=== PATIENT | male | born 1970 | race Caucasian/White ===

== ENCOUNTER 2020-05-09 19:09 | Emergency (ER) | payer BC, SELFPAY ==
--- NOTE | ~2020-05-09 | CT_ITS ---
EXAMINATION: CT brain wo con DATE: 05/09/2020 20:33 INDICATION: Confusion. Lack of coordination. TECHNIQUE: Computed tomography (CT) of the head was performed without intravenous contrast. The dose- length product was 605.33 mGy-cm. The mA was adjusted according to patient size. Iterative reconstruc tion technique was employed. COMPARISON: None FINDINGS: There is a geographic hypodensity of the left frontal lobe and basal ganglia, suspicious fo r acute infarction. No significant mass effect. No ventriculomegaly or midline shift. There is intrac ranial atherosclerosis. Basilar cisterns are patent. Paranasal sinuses and mastoids are pneumatized. No depressed skull fractures. IMPRESSION: 1. Geographic hypodensity left frontal lobe and basal ganglia, suspicious for acute infarction. No si gnificant mass effect or associated hemorrhage. Reviewed, dictated and finalized at location A. IMPRESSION: 1. Geographic hypodensity left frontal lobe and basal ganglia, suspicious for a cute infarction. No significant mass effect or associated hemorrhage.
[2020-05-09 19:15] VITALS: BP 152/85; PULSE 87; RESP 18; TEMP 36.4; O2SAT 97
--- NOTE | 2020-05-09 19:31 | ECG_ITS ---
Measurements Intervals [place] Rate: 84 P: 52 MD: 154 QRS: 26 QRSD: 121 T: 130 QT: 383 QTc: 455 Interpretive Statements SINUS RHYTHM LEFT VENTRICULAR HYPERTROPHY AND ST-T CHANGE BORDERLINE ST-T WAVE ABNORMALITY- ANTEROLAT/HIGH LAT LEADS BASELINE ARTIFACT- I, II, III, AVR, AVL, AVF, V1-V6 BORDERLINE ECG Electronically Signed On 05-10-2020 8:17:50 CDT by Franc Lazcano D.O.
--- NOTE | 2020-05-09 19:38 | ED.AMS ---
HPI - Altered Mental Status General Chief Complaint: Dental/Oral Stated Complaint: tooth pain Time Seen by Provider: 05/09/20 19:38 Source: patient and family Mode of arrival: ambulatory Limitations: no limitations History of Present Illness HPI narrative: 50-year-old man comes to the emergency department this evening complaining of toothache on the left side of his upper jaw. His mother accompanies him stating that this evening he has been confused and not acting well. He did not eat dinner as per usual. He states he has a headache and feels dizzy. Has had no nausea, vomiting, diarrhea, chest pain, shortness of breath, cough or cold symptoms, abdominal pain, dysuria or hematuria. He has not had no recent medication changes and denies any recent drugs or alcohol. MD complaint: altered mental status Onset (ago): hour(s) Timing confirmed by: family member Severity: moderate Consistency of symptoms: constant Context: diabetes Associated symptoms: headaches Related Data Home Medications Medication Instructions Recorded Confirmed atorvastatin 40 mg PO DAILY 05/09/20 05/09/20 glimepiride 4 mg PO DAILY 05/09/20 05/09/20 lisinopril 20 mg PO DAILY 05/09/20 05/09/20 metformin 2,000 mg PO DAILY 05/09/20 05/09/20 metoprolol succinate 12.5 mg PO BID 05/09/20 05/09/20 Allergies Allergy/AdvReac Type Severity Reaction Status Date / Time No Known Allergies Allergy Unknown Verified 03/06/08 18:31 NKFA Allergy Unknown Uncoded 01/01/03 13:56 Review of Systems Constitutional: Constitutional: Denies chills and Denies fever(s) Eyes: Eyes: Denies change in vision and Denies photophobia ENT: Denies dysphagia, Denies nasal congestion and Denies sore throat Cardiovascular: Cardiovascular: Denies chest pain and Denies radiating jaw, neck or arm pain Respiratory: Respiratory: Denies cough and Denies dyspnea Gastrointestinal: Gastrointestinal: Denies abdominal pain, Denies nausea and Denies vomiting Genitourinary: Genitourinary: Denies hematuria and Denies dysuria Musculoskeletal: Musculoskeletal: Denies back pain, Denies arthralgias and Denies joint swelling Integumentary/Breasts: Skin/Breast: Denies pruritus, Denies erythema and Denies rash Neurologic: Reports as per HPI, Reports confusion, Denies vertigo, Reports dizziness, Denies syncope, Denies focal weakness and Denies numbness Endocrine: Endocrine: Denies polydipsia and Denies polyuria Hematologic/Lymphatic: Hematologic/Lymphatic: Denies easy bleeding and Denies easy bruising Allergic/Immunologic: Allergic/Immunologic: Denies lip swelling and Denies tongue swelling [facility] Past Medical History Medical History (Updated 05/09/20 @ 21:27 by Franklin Batista MD) Coronary artery disease Hyperlipidemia Hypertension Surgical History Surgical History (Updated 05/09/20 @ 19:42 by Franklin Batista MD) History of left heart catheterization Social History Social History Smoking status: Current every day smoker Tobacco type: cigarettes Alcohol intake: former Alcohol use details: not since March Substance use: former Last use: not since March Living arrangements: with family Additional occupation/education comments: stress lately because his workplace may be shutting down Exam Const: General: healthy appearing, no acute distress and alert Other: Oriented to year. Mistakenly identifies birthday, month, and cannot identify the present, But correctly states next Tuesday is election day. HENMT: Ears: external ears normal, TM's normal bilaterally and EAC's normal General nose exam: Normal nares present Face and sinus: normal facial exam Mouth: Yes moist mucous membranes Throat: posterior oropharynx normal Other: Diffuse dental decay, left upper 2nd molar decayed to the gingiva. Minimal gum swelling. Eyes: Conjunctivae: conjunctivae normal Pupils: Equal, round and reacti
[2020-05-09 19:51] LABS: Glucose Point of Care 345 (65-105)
[2020-05-09] MEDS: SODIUM CHLORIDE 0.9% IV 1,000 ML 999 ML IV CONT (19:51)
[2020-05-09 19:59] LABS: Base Excess ABG 1.7 mmol/L (0-2); Basophils Absolute Auto 0.03 K/mm3 (0.00-0.10); Basophils Percent Auto 0.3 % (0.0-1.0); Carboxyhemoglobin 7.2 % (0-1.5); Eosinophils Absolute Auto 0.15 K/mm3 (0.02-0.50); Eosinophils Percent Auto 1.5 % (1.0-6.0); HCO3 ABG 25.5 mmol/L (23-29); Hematocrit 45.7 % (40.0-54.0); Hemoglobin 15.7 g/dL (14.0-18.0); Immature Granulocyte Absolute 0.04 K/mm3 (0.00-0.00); Immature Granulocyte Percent A 0.4 % (0.0-0.0); Lymphocytes Absolute Auto 2.67 K/mm3 (1.10-4.50); Lymphocytes Percent Auto 27.1 % (18.0-42.0); Mean Corpuscular HGB Conc 34.4 g/dL (32.0-36.0); Mean Corpuscular Hemoglobin 29.6 pg (27.0-31.0); Mean Corpuscular Volume 86.2 fL (78.0-102.0); Methemoglobin ABG 0.3 % (0-1.5); Monocytes Absolute Auto 0.63 K/mm3 (0.10-0.90); Monocytes Percent Auto 6.4 % (2.0-11.0); Neutrophils Absolute Auto 6.4 K/mm3 (1.7-7.2); Neutrophils Percent Auto 64.3 % (50.0-70.0); Oxygen Content ABG 19.5 %vol (16.0-22.0); Oxygen Saturation ABG 95.6 % (95-97); Oxyhemoglobin 88.4 % (94-100); PCO2 ABG 37.3 mmHg (35-45); PO2 ABG 72.5 mmHg (80-90); Platelet Count Result 248 K/mm3 (150-420); Red Cell Distribution Width 12.1 % (11.6-14.4); Reduced Hemoglobin 4.1 % (0-1.5); Total Hemoglobin 15.7 g/dL; White Blood Count 9.9 K/mm3 (4.8-10.8); pH ABG 7.45 (7.35-7.45)
[2020-05-09 20:00] LABS: Device ROOM AIR; Modified Allen's Test Pass; Site Drawn RIGHT BRACHIAL
[2020-05-09 20:16] LABS: Lactic Acid Reflex 1.2 mmol/L (0.4-2.0); Partial Thromboplastin Time 28.1 SEC (22.3-31.6); Prothrombin Time 10.3 Seconds (9.64-11.0)
[2020-05-09 20:23] LABS: Alanine Aminotransferase 26 U/L (16-63); Albumin Level 4.1 g/dL (3.4-5.0); Alkaline Phosphatase 93 U/L (46-116); Ammonia 15 umol/L (11-32); Anion Gap 11 mmol/L (8-16); Aspartate Amino Transferase < 10 U/L (15-37); Bilirubin,Total 0.4 mg/dL (0.00-1.00); Blood Urea Nitrogen 8 mg/dL (7-18); Carbon Dioxide 26 mmol/L (21-32); Chloride 95 mmol/L (98-108); Creatine Kinase 55 U/L (39-308); Estimated CRCL calculation 97 ml/min; Estimated Glomerular Filt Rate > 60; Glucose 308 mg/dL (70-99); Osmolality Calculated 284 mOsm/kg (285-295); Potassium 4.3 mmol/L (3.5-5.1); Salicylate 5.3 mg/dL (2.8-20.0); Sodium 132 mmol/L (136-145); Thyroid Stimulating Hormone 0.86 uIU/mL (0.36-3.74); Total Protein 7.3 g/dL (6.4-8.2); Troponin I 0.02 ng/mL (0.00-0.056)
[2020-05-09 20:25] LABS: Acetaminophen 0 ug/mL (10-30); Ethanol < 3 mg/dL (0-6)
[2020-05-09 20:32] LABS: Add Urine Microscopic? YES; Appearance Urine Clear (Clear); Bilirubin Urine Negative (Negative); Blood Urine Negative (Negative); Color Urine Yellow (Yellow); Glucose Urine UA 3+ (Negative); Ketones Urine Negative (Negative); Leukocyte Esterase Ur Negative LEU/UL (Negative); Nitrate Urine Negative (Negative); Protein Urine Negative (Negative); Urobilinogen Urine 0.2 mg/dL (0.2-1.0); pH Urine 6.5 (5.0-8.0)
[2020-05-09 20:38] LABS: Bacteria Urine Trace /hpf; RBC Urine 0-2 /hpf (0-2); Squamous Epithelial Cell Urine Rare /hpf (Few); WBC Urine 0-3 /hpf (0-3)
[2020-05-09 20:39] LABS: Amphetamine Screen Urine Negative (Negative); Barbiturate Screen Urine Negative (Negative); Benzodiazepines Screen Urine Negative (Negative); Cannabinoid Screen Urine Negative (Negative); Cocaine Screen Urine Negative (Negative); Methadone Screen Urine Negative (Negative); Opiate Screen Urine Negative (Negative); Phencyclidine Screen Urine Negative (Negative)
[2020-05-09 20:45] VITALS: BP 136/67; PULSE 84; RESP 20; TEMP 36.4; O2SAT 98
--- NOTE | 2020-05-09 20:51 | PC.NURSE ---
call to [facility] for neuro consult, out of window for stat stroke, unknown last normal time as pt lives alone.
--- NOTE | 2020-05-09 20:54 | PC.NURSE ---
awaiting for call back from [facility] [address] govea.
--- NOTE | 2020-05-09 21:06 | PC.NURSE ---
pt unable to complete thoughts, pt speech garbled at times. pt states i know when this stroke happened , asked when, pt states 30 saturdays,no 3 . ask how he knows, states i couldnt dry the dishes . mother states he has been going to work except for today as far as she knows.
--- NOTE | 2020-05-09 21:09 | PC.NURSE ---
spoke with vicente at [facility].
--- NOTE | 2020-05-09 21:12 | PCDIET ---
call to [facility] per pt request.
[2020-05-09 21:16] VITALS: BP 160/93; PULSE 72; RESP 20; O2SAT 96
--- NOTE | 2020-05-09 21:21 | PC.NURSE ---
erp spoke with dr limon from [facility], pt to transfer. pt unable to write name clearly as normal. slight right are drift noted. no facial droop noted. awaiting bed placement at this time.
[2020-05-09] MEDS: ASPIRIN 81 MG CHEWABLE TABLET 324 MG PO (21:37)
--- NOTE | 2020-05-09 21:53 | PC.NURSE ---
call to october at [facility], continue to await bed placement, family in with pt.
[2020-05-09 22:22] VITALS: BP 162/95; PULSE 76; RESP 20; TEMP 36.3; O2SAT 97
--- NOTE | 2020-05-09 22:28 | PC.NURSE ---
[facility] called for transport. awaiting arrival
--- NOTE | 2020-05-09 22:43 | PC.NURSE ---
[facility] here, report given, pt loaded to cot. departed facility with all belongings. pt declined putting on a gown.
--- NOTE | 2020-05-09 22:56 | PC.NURSE ---
pt assisted to cot, gait slow leaning to right. right side of face slightly puffy.
== END 2020-05-09 22:57 | disposition short-term general hospital (02) ==
PROVIDERS: Emergency Provider Emergency Medicine; PCP Internal Medicine
DX: I63.9 Cerebral infarction, unspecified (principal); K08.89 Other specified disorders of teeth and supporting structures; Z79.899 Other long term (current) drug therapy; I25.10 Atherosclerotic heart disease of native coronary artery without angina pectoris; E78.5 Hyperlipidemia, unspecified; I10 Essential (primary) hypertension; F17.200 Nicotine dependence, unspecified, uncomplicated
CPT/HCPCS: 36415; 36600; 70450; 71046; 80053; 80307; 81001; 82140; 82375; 82550; 82805; 82948; 83050; 83605; 84443; 84484; 85025; 85610; 85730; 87040; 93005; 96360; 99285; A9270; J7030

== ENCOUNTER 2021-03-17 11:15 | Outpatient (CLI) | payer BC, SELFPAY ==
--- NOTE | ~2021-03-17 | XR_ITS ---
EXAMINATION: XR chest 2V DATE: 03/17/2021 11:39 INDICATION: Cough and body aches TECHNIQUE: PA and lateral views of the chest are obtained. COMPARISON: 05/09/2020 FINDINGS: The lungs are free of acute opacities. There is no pleural effusion or pneumothorax. The ca rdiomediastinal silhouette is normal. There is mild thoracic spondylosis. IMPRESSION: 1. No acute cardiopulmonary abnormality. Reviewed, dictated and finalized at location B.
[2021-03-17 11:50] LABS: Basophils Absolute Auto 0.06 K/mm3 (0.00-0.10); Basophils Percent Auto 0.8 % (0.0-1.0); Eosinophils Absolute Auto 0.08 K/mm3 (0.02-0.50); Hematocrit 47.5 % (40.0-54.0); Hemoglobin 16.4 g/dL (14.0-18.0); Immature Granulocyte Absolute 0.03 K/mm3 (0.00-0.00); Immature Granulocyte Percent A 0.4 % (0.0-0.0); Lymphocytes Absolute Auto 2.26 K/mm3 (1.10-4.50); Lymphocytes Percent Auto 28.6 % (18.0-42.0); Mean Corpuscular HGB Conc 34.5 g/dL (32.0-36.0); Mean Corpuscular Hemoglobin 29.1 pg (27.0-31.0); Mean Corpuscular Volume 84.2 fL (78.0-102.0); Mean Platelet Volume 10.6 fl (8.7-11.0); Monocytes Absolute Auto 0.47 K/mm3 (0.10-0.90); Neutrophils Percent Auto 63.2 % (50.0-70.0); Platelet Count Result 313 K/mm3 (150-420); Red Blood Count 5.64 M/mm3 (4.70-6.10); Red Cell Distribution Width 12.5 % (11.6-14.4); White Blood Count 7.9 K/mm3 (4.8-10.8)
[2021-03-17 12:10] LABS: Alanine Aminotransferase 41 U/L (16-63); Albumin Level 4.2 g/dL (3.4-5.0); Alkaline Phosphatase 96 U/L (46-116); Anion Gap 9 mmol/L (8-16); Aspartate Amino Transferase 20 U/L (15-37); Bilirubin,Total 0.4 mg/dL (0.00-1.00); Blood Urea Nitrogen 4 mg/dL (7-18); Calcium 9.3 mg/dL (8.5-10.1); Carbon Dioxide 26 mmol/L (21-32); Chloride 99 mmol/L (98-108); Estimated Glomerular Filt Rate > 60; Glucose 358 mg/dL (70-99); Osmolality Calculated 288 mOsm/kg (285-295); Potassium 4.5 mmol/L (3.5-5.1); Sodium 134 mmol/L (136-145); Total Protein 7.8 g/dL (6.4-8.2)
[2021-03-17 12:17] LABS: Influenza Control Valid (Valid); SARS-CoV-2 Ag Negative (Negative)
== END 2021-03-17 11:16 | disposition home or self-care (01) ==
LOC: CHSLAB 11:17
PROVIDERS: PCP Internal Medicine; Visit Provider Internal Medicine
DX: R05 Cough (principal); R52 Pain, unspecified; Z20.822 Contact with and (suspected) exposure to COVID-19
CPT/HCPCS: 71046; 80053; 85025; 87081; 87426; 87804; 87880; C9803

== ENCOUNTER 2021-08-14 11:44 | Emergency (ER) | payer BC, SELFPAY ==
[2021-08-14 11:50] VITALS: BP 131/56; PULSE 111; RESP 20; TEMP 36.2; O2SAT 97
--- NOTE | 2021-08-14 12:26 | ED.DENTAL ---
HPI - Dental/Oral General Chief complaint: Dental/Oral Stated complaint: Infected tooth Time Seen by Provider: 08/14/21 11:46 Source: patient and RN notes reviewed Mode of arrival: ambulatory Limitations: no limitations History of Present Illness Complaint: tooth pain Location: Tooth # (20) Onset (ago): day(s) (2) Duration: constant Severity: moderate Severity scale (1-10): 6 Relieving factors: nothing Exacerbating factors: chewing Context: history of dental caries Associated symptoms: ear pain Treatment prior to arrival: none Related Data Allergies Allergy/AdvReac Type Severity Reaction Status Date / Time No Known Allergies Allergy Unknown Verified 03/06/08 18:31 NKFA Allergy Unknown Uncoded 01/01/03 13:56 Review of Systems Review of Systems: All systems reviewed & are unremarkable except as noted in HPI and below ENT: Comments: left earache + left cheek swelling PMFSH Past Medical History Medical History Coronary artery disease Hyperlipidemia Hypertension Surgical History Surgical History History of left heart catheterization Social History Social History Smoking status: Current every day smoker Tobacco type: cigarettes Alcohol intake: former Alcohol use details: not since March Substance use: former Last use: not since March Additional occupation/education comments: stress lately because his workplace may be shutting down Exam Const: General: healthy appearing, no acute distress and alert Orientation/consciousness: patient oriented x3 Limitations: no limitations HENMT: Ears: external ears normal and TM's normal bilaterally General nose exam: Normal external nose present and Normal nares present Face and sinus: normal facial exam and sinuses nontender Mouth: Yes lip normal and Yes moist mucous membranes Teeth and gingiva: dentition normal (multiple carious teeth. no acute gum redness, swelling or pus) Eyes: Conjunctivae: conjunctivae normal Pupils: Equal, round and reactive pupils present EOM: EOMs intact bilaterally Neck: Neck: normal visual inspection and no lymphadenopathy Chest: Chest palpation & inspection: normal inspection of the chest Resp: Effort & Inspection: normal respiratory effort Auscultation: clear to auscultation bilaterally Cardio: Rate: regular rate Rhythm: regular rhythm GI: GI Palp: Yes Soft to palpation and No Tenderness to palpation present (GI) Auscultation: normal bowel sounds : General: Yes bladder normal to palpation and Yes no CVA tenderness Male General Exam: Yes normal external exam Testes: Testes normal Back/Spine/Pelvis: Back: no CVA tenderness Skin: General skin exam: normal color Rashes: no rashes Neuro: General: patient oriented x3, moves all extremities, no meningeal signs, no focal motor deficits and CN's II-XI intact bilaterally Extrem: General: normal to inspection and no pedal edema Psych: Appearance: grossly normal and well kempt Mental Status: mental status grossly normal Affect: normal affect Attitude: cooperative Thought content: Yes Normal thought content present Course Course Emergency Course: Pt was stable with less ear pain in the ED> Reevaluation(s) Reevaluation #1: VSS. For home to seek early dental care. Date: 08/14/21 Time: 12:34 Vital Signs Vital signs: Vital Signs Temperature 36.2 C L 08/14/21 11:50 Pulse Rate 111 H 08/14/21 11:50 Respiratory Rate 20 08/14/21 11:50 Blood Pressure 131/56 L 08/14/21 11:50 Pulse Oximetry 97 08/14/21 11:50 Temperature 36.2 C L 08/14/21 12:44 Pulse Rate 94 08/14/21 12:44 Respiratory Rate 20 08/14/21 12:44 Blood Pressure 134/75 08/14/21 12:44 Pulse Oximetry 97 08/14/21 12:44 MDM - Dental/Oral Differential Diagnosis Differential diagnosis: Likely de
[2021-08-14] MEDS: IBUPROFEN 400 MG TABLET 800 MG PO (12:41)
[2021-08-14] MEDS: cefTRIAXone 1 GM VIAL IM (12:41)
[2021-08-14 12:44] VITALS: BP 134/75; PULSE 94; RESP 20; TEMP 36.2; O2SAT 97
== END 2021-08-14 12:51 | disposition home or self-care (01) ==
PROVIDERS: Emergency Provider Emergency Medicine; PCP Internal Medicine
DX: K08.89 Other specified disorders of teeth and supporting structures (principal)
CPT/HCPCS: 96372; 99283; A9270; J0696